=== PATIENT | female | born 1980 | race Hispanic/Latino ===

== ENCOUNTER 2020-08-05 19:26 | Emergency (ER) | payer SELFPAY ==
[~2020-08-05] VITALS: Ht 162.6 cm; Wt 88.5 kg
== END 2020-08-05 20:08 | disposition home or self-care (01) ==
LOC: ER 19:49
DX: U07.1 COVID-19 (principal); R50.9 Fever, unspecified; R05 Cough; R06.02 Shortness of breath
CPT/HCPCS: 93005; 99282